=== PATIENT | female | born 1965 | race Caucasian/White ===

== ENCOUNTER 2024-10-19 18:17 | Emergency (ER) | payer OTHER ==
[2024-10-19] MEDS ORDERED: ONDANSETRON 4 MG/2 ML VIAL ONE (19:20)
[2024-10-19] MEDS ORDERED: FAMOTIDINE 20 MG/50 ML IVPB 20 MG/50 ML MG IVPB ONE (19:21)
[2024-10-19] MEDS ORDERED: ACETAMINOPHEN INJECTION 100 ML ONE (19:21)
[2024-10-19] MEDS: SODIUM CHLORIDE 0.9% 1000 ML INFUS.BAG IV ONE (19:46)
[2024-10-19] MEDS: ONDANSETRON 4 MG/2 ML VIAL IVPUSH ONE (19:46)
[2024-10-19] MEDS: FAMOTIDINE 20 MG/50 ML IVPB 20 MG/50 ML MG IVPB ONE (19:47)
[2024-10-19] MEDS: ACETAMINOPHEN 1000 MG/100 ML BAG IVPB ONE (19:47)
[2024-10-19 19:50] LABS: ABSOLUTE IMMATURE GRANULOCYTES 0.02 x10^3/uL (0.0-0.031); BASOPHILS # 0.01 x10^3/uL (0.01-0.08); EOSINOPHIL % 0.2 % (0.7-5.8); EOSINOPHILS # 0.02 x10^3/uL (0.04-0.36); HEMATOCRIT 42.4 % (34.1-44.9); HEMOGLOBIN 14.7 g/dL (11.2-15.7); MCHC 34.7 g/dl (32.2-35.5); MEAN CELL VOLUME 80.6 fl (79.4-94.8); MEAN PLT VOLUME 9.5 fl (9.4-12.3); MONOCYTE # 0.47 x10^3/uL (0.24-0.86); MONOCYTE % 4.8 % (4.7-12.5); PLATELET COUNT 241 x10^3/uL (182-369); RDW 12.9 % (12.3-16.6)
[2024-10-19 19:55] LABS: INR 1.07 (0.83-1.09); PROTHROMBIN TIME (PATIENT) 11.9 SEC (9.7-13.0)
[2024-10-19 19:57] LABS: ACTIVATED PTT 28.5 SECONDS (25.2-36.5)
[2024-10-19 20:07] LABS: ALBUMIN 4.5 g/dl (3.4-5.0); ALK PHOS 66 U/L (45-117); ANION GAP 11 mmol/L (4-13); BILIRUBIN,TOTAL 0.7 mg/dl (0.2-1); CALCIUM 8.2 mg/dl (8.5-10.1); CHLORIDE 104 mmol/L (98-107); CO2 24 mmol/L (21-32); CREATININE 0.8 mg/dl (0.6-1.3); GLUCOSE,RANDOM 118 mg/dl (74-106); MAGNESIUM 2.2 mg/dL (1.8-2.4); POTASSIUM 3.9 mmol/L (3.5-5.1); SGOT/AST 14 U/L (15-37); SGPT/ALT 18 U/L (7-52); SODIUM 139 mmol/L (136-145); TOT PROT 6.9 g/dl (6.4-8.2)
[2024-10-19 20:09] VITALS: BP 116/66; PULSE 88; RESP 16; TEMP 99; BMI 30.8
== END 2024-10-19 20:52 | disposition home or self-care (01) ==
LOC: FER 18:17
PROC: 3E033GC Introduction of Other Therapeutic Substance into Peripheral Vein, Percutaneous Approach (ICD-10-PCS; principal; 2024-10-19)
PROC: 3E033NZ Introduction of Analgesics, Hypnotics, Sedatives into Peripheral Vein, Percutaneous Approach (ICD-10-PCS; 2024-10-19)
PROC: 3E033GC Introduction of Other Therapeutic Substance into Peripheral Vein, Percutaneous Approach (ICD-10-PCS; 2024-10-19)
DX: R11.2 Nausea with vomiting, unspecified (principal); R19.7 Diarrhea, unspecified
CPT/HCPCS: 0241U-QW; 36415; 71045-TC-FY; 80053; 83605; 83690; 83735; 84484; 85025; 85610; 85730; 93005; 99285-25; J0131